=== PATIENT | female | born 1950 | race Caucasian/White ===

== ENCOUNTER → 2023-11-13 | Day surgery (SDC) | payer MEDICARE ==
[~2023-11-13] MED LIST: ATORVASTATIN CA20 MG PO; BUSPIRONE HCL10 MG PO; DEXMEDETOMIDINE HCL 200 MCG/2 ML VIAL ONE; DOXEPIN HCL25 MG PO; FERROUS SU220 MG/51; FLUOXETINE HCL20 MG PO; HYDROCHLOROTHIA25 MG PO; LIDOCAINE HCL 2% LOCAL INJ 5 ML SDV VIAL INJ ONE; MULTI-VITAMIN1 EACH PO; NEURONTIN400 MG PO; NIFEDIPINE10 MG PO; OXYBUTYNIN CHLOR5 MG PO; PROPOFOL IV EMULSION 10 MG/ML 20 ML VIAL ONE; PROTONIX20 MG PO
[2023-11-13] MEDS: LACTATED RINGER'S 1,000 ML ONE (08:49)
[2023-11-13 09:27] VITALS: TEMP 97.9
[2023-11-13 09:55] VITALS: BP 143/87; PULSE 63; RESP 16; O2SAT 95
== END | disposition home or self-care (01) ==
LOC: ENDO 07:23
PROVIDERS: ATTEND Internal Medicine Gastroenterology
DX: B37.81 Candidal esophagitis (principal); K29.50 Unspecified chronic gastritis without bleeding; K21.00 Gastro-esophageal reflux disease with esophagitis, without bleeding; K31.89 Other diseases of stomach and duodenum; K44.9 Diaphragmatic hernia without obstruction or gangrene; K91.89 Other postprocedural complications and disorders of digestive system; K57.90 Diverticulosis of intestine, part unspecified, without perforation or abscess without bleeding; D64.9 Anemia, unspecified; I10 Essential (primary) hypertension; E78.5 Hyperlipidemia, unspecified; R01.1 Cardiac murmur, unspecified; M54.9 Dorsalgia, unspecified; F41.9 Anxiety disorder, unspecified; F32.A Depression, unspecified; Z79.899 Other long term (current) drug therapy; Z86.19 Personal history of other infectious and parasitic diseases; Z80.0 Family history of malignant neoplasm of digestive organs
CPT/HCPCS: 43239; 88112; 88305; 88313; 88342; 93005; J2001